=== PATIENT | male | born 1955 | race Caucasian/White ===

== ENCOUNTER 2017-04-15 14:54 | Inpatient (IN) | payer BC ==
[2017-04-15] VITALS (8 sets, daily range): BP systolic 152–169; BP diastolic 81–90; PULSE 126–136; RESP 18–24; TEMP 97.7–98.6; O2SAT 91–94
[~2017-04-15] VITALS: Ht 182.9 cm; Wt 139.4 kg
[~2017-04-15 14:54] MED LIST: ALBU1AER INH; BENI5TAB4 PO; FLON0.053; OMEP20TA PO; PRED20 PO; VENTAER INH; ZITH250T PO
[2017-04-15] MEDS ORDERED: SODIUM CHLOR 0.9% 1000 ML INJ 1,000 ML IV SCH ×2 (15:04→16:31)
--- NOTE | 2017-04-15 15:05 | PD ---
HPI Chief Complaint: cough Time Seen by Provider: 15:00 Travel History International Travel<30 days: No Contact w/Intl Traveler<30days: No Traveled to known affect area: No History of Present Illness HPI 61-year-old male history of COPD presents for evaluation. For the past 2 days he has had cough, congestion, chills or myalgias. He has had a maximum temperature of 101. Today he felt increased dyspnea and wheezing which prompted evaluation. He tried using his albuterol nebulizers at home but symptoms persisted which prompted evaluation. The cough is dry, occasionally productive with yellow sputum. He has no other complaints at this time. [facility] Past Medical History COPD: Yes Diminished Hearing: No GERD: Yes Hypertension: Yes Respiratory: Yes Past Surgical History Other Surgery: Yes (frontal sinus surg) Social History Alcohol Use: No Tobacco Use: No (quit 2012) Substance Use: No Allergies-Medications (Allergen,Severity, Reaction): Coded Allergies: penicillin G (Unverified Allergy, Unknown, 11/11/16) Reported Meds & Prescriptions Reported Meds & Active Scripts Active Reported Omeprazole 20 Mg Tab 20 Mg PO DAILY Metoprolol Tartrate 25 Mg Tab 25 Mg PO BID Combivent Respimat Inh (Ipratropium-Albuterol Inh) 20-100 Long-Term/Act Aero 1 Puff INH QID Ventolin Hfa 18 GM Inh (Albuterol Sulfate) 90 Mcg/Act Aer 2 Puff INH Q4-6H PRN Proair Hfa 8.5 GM Inh (Albuterol Sulfate) 90 Mcg/Act Aer 2 Puff INH Q4-6H PRN 108 mcg/actuation Review of Systems Except as stated in HPI: all other systems reviewed are Neg Physical Exam Narrative GENERAL: Well-developed well-nourished male who appears dyspneic. He is tachycardic in triage. SKIN: Warm and dry. HEAD: Atraumatic. Normocephalic. EYES: Pupils equal and round. No scleral icterus. No injection or drainage. ENT: No nasal bleeding or discharge. Mucous membranes pink and moist. No oral pharyngeal erythema or exudate. NECK: Trachea midline. No JVD. No lymphadenopathy CARDIOVASCULAR: Regular rate and rhythm. No murmur appreciated. RESPIRATORY: No accessory muscle use. Diffuse wheezing bilaterally. No crackles. GASTROINTESTINAL: Abdomen soft, non-tender, nondistended. Hepatic and splenic margins not palpable. MUSCULOSKELETAL: No obvious deformities. No clubbing. No cyanosis. No edema. NEUROLOGICAL: Awake and alert. No obvious cranial nerve deficits. Motor grossly within normal limits. Normal speech. PSYCHIATRIC: Appropriate mood and affect; insight and judgment normal. Data Data Last Documented VS Vital Signs Date Time Temp Pulse Resp B/P (MAP) Pulse Ox O2 Delivery O2 Flow Rate FiO2 04/15/17 16:29 98.6 131 22 169/83 (111) 94 Nasal Cannula 2.00 Orders Orders Complete Blood Count With Diff (04/15/17 15:04) Comprehensive Metabolic Panel (04/15/17 15:04) Influenzae A/B Antigen (04/15/17 15:04) Iv Access Insert/Monitor (04/15/17 15:04) Electrocardiogram (04/15/17 15:04) Ecg Monitoring (04/15/17 15:04) Oximetry (04/15/17 15:04) Oxygen Administration (04/15/17 15:04) Chest, Single Ap (04/15/17 15:04) Sodium Chloride 0.9% Flush (Ns Flush) (04/15/17 15:15) Methylprednisolone So Succ Inj (Solumedr (04/15/17 15:15) Albuterol-Ipratropium Neb (Duoneb Neb) (04/15/17 15:15) Sodium Chlor 0.9% 1000 Ml Inj (Ns 1000 M (04/15/17 15:04) Lactic Acid Sepsis Protocol (04/15/17 15:05) Blood Culture (04/15/17 15:05) Acetaminophen (Tylenol) (04/15/17 15:15) Oseltamivir (Tamiflu) (04/15/17 16:45) Sodium Chlor 0.9% 1000 Ml Inj (Ns 1000 M (04/15/17 16:31) Admit Order (Ed Use Only) (04/15/17 16:42) Labs Laboratory Tests Test 04/15/17 15:10 04/15/17 15:15 White Blood Count 5.8 TH/MM3 Red Blood Count 5.11 MIL/MM3 Hemoglobin 15.4 GM/DL Hematocrit 46.9 % Mean Corpuscular Volume 91.7 FL Mean Corpuscular Hemoglobin 30.0 PG Mean Corpuscular Hemoglobin Concent 32.8 % Red Cell Distribution Width 12.6 % Platelet Count 240 TH/MM3 Mean Platelet Volume 7.6 FL Neutrophils (%) (Auto) 75.0 % Lymphocytes (%) (Auto) 10.8 % Monocytes (%) (Auto) 8.2 % Eosinophils (%) (Auto) 3.2 % Basophils (%) (Auto) 2.8 % Neutrophils # (Auto) 4.3 TH/MM3 Lymphocytes # (Auto) 0.6 TH/MM3 Monocytes # (Auto) 0.5 TH/MM3 Eosinophils # (Auto) 0.2 TH/MM3 Basophils # (Auto) 0.2 TH/MM3 CBC Comment DIFF FINAL Differential Comment Blood Urea Nitrogen 7 MG/DL Creatinine 0.94 MG/DL Random Glucose 136 MG/DL Total Protein 7.2 GM/DL Albumin 4.0 GM/DL Calcium Level 8.7 MG/DL Alkaline Phosphatase 101 U/L Aspartate Amino Transf (AST/SGOT) 18 U/L Alanine Aminotransferase (ALT/SGPT) 36 U/L Total Bilirubin 0.3 MG/DL Sodium Level 132 MEQ/L Potassium Level 3.8 MEQ/L Chloride Level 97 MEQ/L Carbon Dioxide Level 27.0 MEQ/L Anion Gap 8 MEQ/L Estimat Glomerular Filtration Rate 82 ML/MIN Lactic Acid Level 1.9 mmol/L MDM Medical Decision Making Medical Screen Exam Complete: Yes Emergency Medical Condition: Yes Medical Record Reviewed: Yes Differential Diagnosis COPD exacerbation, pneumonia, pneumothorax, pulmonary embolism, influenza Narrative Course Patient was placed on an ECG monitor pulse oximetry. Twelve-lead EKG obtained. Plan is for lab work, chest x-ray, DuoNeb treatment, Solu-Medrol. The patient was given IV fluids. Lab work and imaging studies of intermittent. Positive for influenza A. Upon reexamination He feels somewhat improved however he is still appears dyspneic and is still tachycardic with a heart rate of 130. The patient will be admitted for observation. Procedures EKG Prior to Arrival: Yes Diagnosis Primary Impression: Acute exacerbation of chronic obstructive pulmonary disease Additional Impression: Influenza A Admitting Information Admitting Physician Requests: Anirudh Marion Apr 15, 2017 15:05
[2017-04-15] MEDS: RESP: ALBUTEROL 2.5 MG/IPRATROPIUM 0.5 MG NEB (SCH) INH ×3 (15:14→20:36)
[2017-04-15] MEDS ORDERED: methylPREDNISolone SOD SUCC 125 MG/2 ML VIAL IV PUSH ONE (15:15)
[2017-04-15] MEDS ORDERED: SODIUM CHLORIDE 0.9% FLUSH 10 ML FLUSH IVF PRN (15:15)
[2017-04-15] MEDS ORDERED: ACETAMINOPHEN 325 MG TAB PO ONE (15:15)
[2017-04-15 15:27] LABS: AUTOMATED NEUTROPHIL # 4.3 TH/MM3 (1.8-7.7); BASOPHIL # 0.2 TH/MM3 (0-0.2); BASOPHIL % 2.8 % (0.0-2.0); EOSINOPHIL # 0.2 TH/MM3 (0-0.4); EOSINOPHIL % 3.2 % (0.0-4.0); HEMATOCRIT 46.9 % (39.0-51.0); HEMOGLOBIN 15.4 GM/DL (13.0-17.0); LYMPH % 10.8 % (9.0-44.0); LYMPHOCYTE # 0.6 TH/MM3 (1.0-4.8); MEAN CELL VOLUME 91.7 FL (80.0-100.0); MEAN CORPUSCULAR HGB CONC 32.8 % (32.0-36.0); MEAN PLATELET VOLUME 7.6 FL (7.0-11.0); MONO % 8.2 % (0.0-8.0); MONOCYTE # 0.5 TH/MM3 (0-0.9); PLATELET COUNT 240 TH/MM3 (150-450); RED BLOOD COUNT 5.11 MIL/MM3 (4.50-5.90); RED CELL DISTRIBUTION WIDTH 12.6 % (11.6-17.2); WHITE BLOOD COUNT 5.8 TH/MM3 (4.0-11.0)
[2017-04-15 15:35] LABS: CHLORIDE 97 MEQ/L (98-107); SODIUM (NA) 132 MEQ/L (136-145)
[2017-04-15 15:38] LABS: CALCIUM 8.7 MG/DL (8.5-10.1); GLUCOSE,RANDOM 136 MG/DL (74-106)
[2017-04-15 15:39] LABS: BLOOD UREA NITROGEN 7 MG/DL (7-18)
[2017-04-15 15:42] LABS: ALT (GPT) 36 U/L (12-78); CREATININE 0.94 MG/DL (0.60-1.30); GLOMERULAR FILTRATION RATE 82 ML/MIN (>89)
[2017-04-15 15:43] LABS: AST (GOT) 18 U/L (15-37)
[2017-04-15 15:44] LABS: TOTAL BILIRUBIN ADULT 0.3 MG/DL (0.2-1.0); TOTAL PROTEIN 7.2 GM/DL (6.4-8.2)
[2017-04-15] MEDS ORDERED: IPRAAER INH (15:44)
[2017-04-15] MEDS ORDERED: VENTAER INH (15:44)
[2017-04-15] MEDS ORDERED: ALBUAER3 INH (15:44)
[2017-04-15] MEDS ORDERED: METO25TA3 PO (15:44)
[2017-04-15 15:45] LABS: ALKALINE PHOSPHATASE 101 U/L (45-117)
[2017-04-15] MEDS ORDERED: OMEP20TA93 PO (15:45)
--- NOTE | 2017-04-15 16:13 | RADRPT ---
EXAM DATE/TIME: 04/15/2017 15:56 [place] COMPARISON: CHEST SINGLE AP, June 17, 2015, 9:48. INDICATIONS : Shortness of breath. MEDICAL HISTORY : Chronic obstructive pulmonary disease. SURGICAL HISTORY : None. ENCOUNTER: Initial ACUITY: 1 day PAIN SCORE: 0/10 LOCATION: Bilateral chest FINDINGS: Portable AP views of the chest demonstrate a normal-sized cardiac silhouette. No effusion, consolidat ion, or pneumothorax is identified. The bones and soft tissues demonstrate no acute finding. CONCLUSION: No acute cardiopulmonary abnormality is identified. Dariel Aguillon MD on April 15, 2017 at 16:06 Board Certified Radiologist. This report was verified electronically.
[2017-04-15] MEDS ORDERED: OSELTAMIVIR PHOSPHATE 75 MG CAP PO ONE (16:45)
[2017-04-15] MEDS ORDERED: SODIUM CHLORIDE 0.9% FLUSH 10 ML FLUSH IV FLUSH PRN (17:00)
[2017-04-15] MEDS ORDERED: RESP: ALBUTEROL 2.5 MG/IPRATROPIUM 0.5 MG NEB (PRN) INH (17:00)
[2017-04-15] MEDS: SODIUM CHLOR 0.9% 1000 ML INJ 1,000 ML IV SCH (17:00)
--- NOTE | 2017-04-15 17:09 | HHI.HP ---
[facility] Primary Care Physician Cecilia Ceron MD Admission Diagnosis influenza A, COPD exacerbation Diagnoses: (1) Sepsis Diagnosis: Principal (2) Acute exacerbation of chronic obstructive pulmonary disease Diagnosis: Principal (3) Influenza A Diagnosis: Principal (4) Hyperglycemia Diagnosis: Principal (5) Hyponatremia Diagnosis: Principal Chief Complaint: Shortness of breath and dyspnea Travel History International Travel<30 Days: No Contact w/Intl Traveler <30 Da: No Traveled to Known Affected Are: No Sepsis Criteria SIRS Criteria (2 or more): Heart rate over 90, RR > 20 or PaCO2 < 32 Sepsis Criteria (SIRS+source): Infect source susp/known History of Present Illness Written by Morales Obrien, acting as scribe for Dr. Saucedo on 04/15/17 at 17: 01. 61-year-old male with known history of hypertension, chronic obstructive pulmonary disease, history tobacco use who presented to hospital because of significant shortness of breath and dyspnea. Patient states that he was in his normal state of health until approximately 2 days ago when he started having fever up to 101.0. He had runny nose with sore throat. However then improve but he got significantly short of breath and dyspnea over the last 2 days where he was using his nebulizer machine more than he usually does. He usually only uses his inhalers but because he could not catch a deep breath he was using his nebulizer twice daily. Patient could not get any improvement after using the medication so he came to emergency department for evaluation. Patient had workup done emergency department found to have hypoxia requiring 2 L O2 supplementation to maintain O2 saturations. If was a testing was positive. And is recommended by the ER physician that the patient be admitted for further evaluation and management. Review of Systems Respiratory: COMPLAINS OF: Cough, Sputum production, Shortness of breath Cardiovascular: COMPLAINS OF: Dyspnea on Exertion Past Family Social History Past Medical History Hypertension Chronic obstructive pulmonary disease Gastroesophageal reflux Past Surgical History Multiple orthopedic surgeries from multiple bone fractures Frontal sinus surgery Reported Medications Reported Meds & Active Scripts Active Reported Omeprazole 20 Mg Tab 20 Mg PO DAILY Metoprolol Tartrate 25 Mg Tab 25 Mg PO BID Combivent Respimat Inh (Ipratropium-Albuterol Inh) 20-100 Custodial/Act Aero 1 Puff INH QID Ventolin Hfa 18 GM Inh (Albuterol Sulfate) 90 Mcg/Act Aer 2 Puff INH Q4-6H PRN Proair Hfa 8.5 GM Inh (Albuterol Sulfate) 90 Mcg/Act Aer 2 Puff INH Q4-6H PRN 108 mcg/actuation Allergies: Coded Allergies: penicillin G (Unverified Allergy, Unknown, 11/11/16) Family History Reviewed is significant for father having bladder and prostate cancer. Mother with stroke Social History Patient quit smoking 2 years ago, prior to that he smoked one pack of service a day since he was in the [employer]. Denies any alcohol or illicit drugs Physical Exam Vital Signs Vital Signs Date Time Temp Pulse Resp B/P (MAP) Pulse Ox O2 Delivery O2 Flow Rate FiO2 04/15/17 16:29 98.6 131 22 169/83 (111) 94 Nasal Cannula 2.00 04/15/17 16:06 130 18 154/81 (105) 94 Nasal Cannula 3.00 04/15/17 15:15 94 Nasal Cannula 2.00 04/15/17 15:00 93 Nasal Cannula 2.00 04/15/17 15:00 93 Nasal Cannula 2.00 04/15/17 15:00 98.4 136 24 153/87 (109) 93 04/15/17 15:00 18 93 Nasal Cannula 2.00 Physical Exam GENERAL: Well-developed, mildly obese with BMI 41, in no acute distress. alert and orientated HEENT: Head is normocephalic without any lesions or masses noted. Facial features are symmetric. Eyes: Pupils equal round reactive to light. Extraocular muscles are intact. Conjunctivae were clear. Oropharyngeal: Pharynx without any erythema edema. Tongue is midline without deviation. Buccal mucosa is moist without any masses or lesions NECK: Supple without any masses. Trachea midline no deviation. No JVD, no bruits are appreciated CARDIAC: Regular rhythm, regular rate. S1/S2 are heard. No murmurs gallops or rubs. LUNGS: Lung sounds are diminished with diminished airflow. Does have coarse expiratory wheeze, no rhonchi or rales. No use of accessory muscles on inspiration or expiration. ABDOMEN: Soft, nontender. Nondistended. Bowel sounds heard in all 4 quadrants. No organomegaly or masses. Negative rebound, negative guarding EXTREMITIES: No edema, pulses are equal bilaterally. No cyanosis or clubbing NEUROLOGY: Mood and affect appear appropriate. Cranial nerves II through XII grossly intact. Muscle strength 5/5 in upper and lower extremities bilaterally. Deep tendon reflexes are 2+ in upper and lower extremities bilaterally. Laboratory Laboratory Tests Test 04/15/17 15:10 04/15/17 15:15 White Blood Count 5.8 Red Blood Count 5.11 Hemoglobin 15.4 Hematocrit 46.9 Mean Corpuscular Volume 91.7 Mean Corpuscular Hemoglobin 30.0 Mean Corpuscular Hemoglobin Concent 32.8 Red Cell Distribution Width 12.6 Platelet Count 240 Mean Platelet Volume 7.6 Neutrophils (%) (Auto) 75.0 Lymphocytes (%) (Auto) 10.8 Monocytes (%) (Auto) 8.2 Eosinophils (%) (Auto) 3.2 Basophils (%) (Auto) 2.8 Neutrophils # (Auto) 4.3 Lymphocytes # (Auto) 0.6 Monocytes # (Auto) 0.5 Eosinophils # (Auto) 0.2 Basophils # (Auto) 0.2 CBC Comment DIFF FINAL Differential Comment Blood Urea Nitrogen 7 Creatinine 0.94 Random Glucose 136 Total Protein 7.2 Albumin 4.0 Calcium Level 8.7 Alkaline Phosphatase 101 Aspartate Amino Transf (AST/SGOT) 18 Alanine Aminotransferase (ALT/SGPT) 36 Total Bilirubin 0.3 Sodium Level 132 Potassium Level 3.8 Chloride Level 97 Carbon Dioxide Level 27.0 Anion Gap 8 Estimat Glomerular Filtration Rate 82 Lactic Acid Level 1.9 Date/Time Source Procedure Growth Status 04/15/17 15:15 Blood Peripheral Aerobic Blood Culture Pending Received 04/15/17 15:15 Blood Peripheral Anaerobic Blood Culture Pending Received 04/15/17 15:30 Nasal Aspirate Influenza Types A,B Antigen (IRASEMA) - Final Positive For Flu A Antigen Complete Result Diagram: 04/16/17 0500 04/16/17 0500 Imaging Last Impressions Chest X-Ray 04/15/17 1504 Signed Impressions: Service Date/Time: Saturday, April 15, 2017 15:56 - CONCLUSION: No acute cardiopulmonary abnormality is identified. Dariel Aguillon MD Septic Shock Reassessment Septic shock perfusion: reassessment completed Caprini VTE Risk Assessment Caprini VTE Risk Assessment: Mod/High Risk (score >= 2) Caprini Risk Assessment Model Point Value = 1 Point Value = 2 Point Value = 3 Point Value = 5 Age 41-60 Minor surgery BMI > 25 kg/m2 Swollen legs Varicose veins or History of unexplained or recurrent spontaneous Oral contraceptives or hormone replacement Sepsis (< 1 month) Serious lung disease, including pneumonia (< 1 month) Abnormal pulmonary function Acute myocardial infarction Congestive heart failure (< 1 month) History of inflammatory bowel disease Medical patient at bed rest Age 61-74 Arthroscopic surgery Major open surgery (> 45 min) Laparoscopic surgery (> 45 min) Malignancy Confined to bed (> 72 hours) Immobilizing plaster cast Central venous access Age >= 75 History of VTE Family history of VTE Factor V Leiden Prothrombin [id number] Lupus anticoagulant Anticardiolipin antibodies Elevated serum homocysteine Heparin-induced thrombocytopenia Other congenital or acquired thrombophilia Stroke (< 1 month) Elective arthroplasty Hip, pelvis, or leg fracture Acute spinal cord injury (< 1 month) Prophylaxis Regimen Total Risk Factor Score Risk Level Prophylaxis Regimen 0-1 Low Early ambulation 2 Moderate Order ONE of the following: *Sequential Compression Device (SCD) *Heparin 5000 units SQ BID 3-4 Higher Order ONE of the following medications: *Heparin 5000 units SQ TID *Enoxaparin/Lovenox 40 mg SQ daily (WT < 150 kg, CrCl > 30 mL/min) *Enoxaparin/Lovenox 30 mg SQ daily (WT < 150 kg, CrCl > 10-29 mL/min) *Enoxaparin/Lovenox 30 mg SQ BID (WT < 150 kg, CrCl > 30 mL/min) AND/OR *Sequential Compression Device (SCD) 5 or more Highest Order ONE of the following medications: *Heparin 5000 units SQ TID (Preferred with Epidurals) *Enoxaparin/Lovenox 40 mg SQ daily (WT < 150 kg, CrCl > 30 mL/min) *Enoxaparin/Lovenox 30 mg SQ daily (WT < 150 kg, CrCl > 10-29 mL/min) *Enoxaparin/Lovenox 30 mg SQ BID (WT < 150 kg, CrCl > 30 mL/min) AND *Sequential Compression Device (SCD) Assessment and Plan Assessment and Plan Sepsis Patient meets criteria with tachypnea, tachycardia, influenza A infection Patient continued on Tamiflu Continue monitor blood cultures Chronic obstructive pulmonary disease with acute exacerbation Continue O2 supplementation maintain O2 sats greater 92% Start Duo nebs every 4 hours and every 2 hours as needed Start Solu-Medrol 60 mg IV every 6 hours Start Symbicort twice daily start incentive spirometry Hypertension Continue home medications Hyperglycemia Check hemoglobin A1c Start Accu-Cheks will sign scale insulin if needed Gastroesophageal reflux Continue proton pump inhibitor DVT prevention Subcutaneous heparin Sequential compression devices Code Status No code Physician Certification 2 Midnight Certification Type: Admission for Inpatient Services Order for Inpatient Services The services are ordered in accordance with Medicare regulations or non- Medicare payer requirements, as applicable. In the case of services not specified as inpatient-only, they are appropriately provided as inpatient services in accordance with the 2-midnight benchmark. Estimated LOS (days): 2 days is the estimated time the patient will need to remain in the hospital, assuming treatment plan goals are met and no additional complications. Post-Hospital Plan: Not yet determined Medical Decision Making Impression and Plan This note was transcribed by karina [[email or web address]]. I, Dr. Lauren Saucedo personally performed the history, physical exam, and medical decision making; and confirmed the accuracy of the information in the transcribed note. Patient is seen and history and physical are obtained at the time of the note. It is only signed at this time Authenticated by Dr. Lauren Saucedo on 04/16/17 at 14:35. Morales Obrien Apr 15, 2017 17:08 Lauren Saucedo MD Apr 16, 2017 14:36
[2017-04-15] MEDS: HEPARIN SODIUM - SQ 10,000 UNITS/ML VIAL SQ SCH (17:33)
[2017-04-15] MEDS: METOPROLOL TARTRATE 25 MG TAB PO SCH (21:39)
[2017-04-15] MEDS: BUDESONIDE-FORMOTEROL 160/4.5 MCG INHALER INH SCH (21:40)
[2017-04-15] MEDS: SODIUM CHLORIDE 0.9% FLUSH 10 ML FLUSH IV FLUSH SCH (21:41)
[2017-04-15] MEDS: OSELTAMIVIR PHOSPHATE 75 MG CAP PO SCH (21:41)
[2017-04-15] MEDS: methylPREDNISolone SOD SUCC 125 MG/2 ML VIAL IV PUSH SCH (21:43)
[2017-04-15 22:36] LABS: HEMOGLOBIN A1C 5.8 % (4.3-6.0)
[2017-04-16] VITALS: BP 150/93; PULSE 106; RESP 18; TEMP 97.9; O2SAT 95
[2017-04-16 04:00] VITALS: BP 152/81; PULSE 102; RESP 17; TEMP 98.1; O2SAT 97
[2017-04-16] MEDS: methylPREDNISolone SOD SUCC 125 MG/2 ML VIAL IV PUSH SCH ×2 (04:28→10:00)
[2017-04-16] MEDS: HEPARIN SODIUM - SQ 10,000 UNITS/ML VIAL SQ SCH (04:29)
[2017-04-16 06:19] LABS: AUTOMATED NEUTROPHIL # 3.2 TH/MM3 (1.8-7.7); BASOPHIL % 0.1 % (0.0-2.0); EOSINOPHIL % 0.2 % (0.0-4.0); HEMATOCRIT 47.3 % (39.0-51.0); HEMOGLOBIN 15.5 GM/DL (13.0-17.0); LYMPH % 9.2 % (9.0-44.0); LYMPHOCYTE # 0.3 TH/MM3 (1.0-4.8); MEAN CELL VOLUME 93.2 FL (80.0-100.0); MEAN CORPUSCULAR HEMOGLOBIN 30.6 PG (27.0-34.0); MEAN CORPUSCULAR HGB CONC 32.8 % (32.0-36.0); MONO % 2.7 % (0.0-8.0); MONOCYTE # 0.1 TH/MM3 (0-0.9); NEUT % 87.8 % (16.0-70.0); PLATELET COUNT 235 TH/MM3 (150-450); RED BLOOD COUNT 5.07 MIL/MM3 (4.50-5.90); RED CELL DISTRIBUTION WIDTH 12.9 % (11.6-17.2); WHITE BLOOD COUNT 3.6 TH/MM3 (4.0-11.0)
[2017-04-16 06:34] LABS: BICARBONATE 27.5 MEQ/L (21.0-32.0)
[2017-04-16 06:37] LABS: CREATININE 0.78 MG/DL (0.60-1.30)
[2017-04-16] MEDS: SODIUM CHLOR 0.9% 1000 ML INJ 1,000 ML IV SCH (07:09)
[2017-04-16] MEDS: RESP: ALBUTEROL 2.5 MG/IPRATROPIUM 0.5 MG NEB (SCH) INH ×2 (07:28→11:03)
[2017-04-16 07:32] VITALS: O2SAT 92
[2017-04-16 07:50] VITALS: BP 147/81; PULSE 126; RESP 20; TEMP 98.3; O2SAT 91
[2017-04-16] MEDS ORDERED: PANTOPRAZOLE SOD 20 MG DELAYED RELEASE TAB PO SCH (09:00)
[2017-04-16] MEDS: BUDESONIDE-FORMOTEROL 160/4.5 MCG INHALER INH SCH (09:56)
[2017-04-16] MEDS: OSELTAMIVIR PHOSPHATE 75 MG CAP PO SCH (10:00)
[2017-04-16] MEDS ORDERED: PNEUMOCOCCAL POLYVALENT INJ 25 MCG/0.5 ML SYR IM ONE (10:00)
[2017-04-16] MEDS: SODIUM CHLORIDE 0.9% FLUSH 10 ML FLUSH IV FLUSH SCH (10:01)
[2017-04-16] MEDS: METOPROLOL TARTRATE 25 MG TAB PO SCH (10:01)
[2017-04-16 11:50] VITALS: BP 136/79; PULSE 116; RESP 20; TEMP 97.6; O2SAT 91
[2017-04-16] MEDS ORDERED: MEDR4PAK PO (13:02)
[2017-04-16] MEDS ORDERED: OSEL75 PO (13:02)
[2017-04-16] MEDS ORDERED: Budeson-Formot 160-4.5 Mcg Inh INH (13:02)
--- NOTE | 2017-04-16 13:02 | HHI.DCPOC ---
Discharge Care Plan Diagnosis: (1) Influenza A (2) Acute exacerbation of chronic obstructive pulmonary disease Goals to Promote Your Health * To prevent worsening of your condition and complications * To maintain your health at the optimal level Directions to Meet Your Goals Take your medications as prescribed Follow your dietary instruction Follow activity as directed Keep your appointments as scheduled Take your immunizations and boosters as scheduled If your symptoms worsen call your PCP, if no PCP go to Urgent Care Center or Emergency Room Smoking is Dangerous to Your Health. Avoid second hand smoke Call the 24-hour hour crisis hotline for domestic abuse at Morales Obrien Apr 16, 2017 13:02
--- NOTE | 2017-04-16 13:09 | HHI.DS ---
Discharge Summary Admission Date Apr 15, 2017 at 16:58 Discharge Date: Apr 16, 2017 Admitting Diagnosis influenza A, COPD exacerbation (1) Sepsis ICD Code: A41.9 - Sepsis, unspecified organism Diagnosis: Principal (2) Acute exacerbation of chronic obstructive pulmonary disease ICD Code: J44.1 - Chronic obstructive pulmonary disease with (acute) exacerbation Diagnosis: Principal (3) Influenza A ICD Code: J10.1 - Influenza due to other identified influenza virus with other respiratory manifestations Diagnosis: Principal (4) Hyperglycemia ICD Code: R73.9 - Hyperglycemia, unspecified Diagnosis: Principal (5) Hyponatremia ICD Code: E87.1 - Hypo-osmolality and hyponatremia Diagnosis: Principal Procedures None Brief History - From Admission Written by Morales Obrien, acting as scribe for Dr. Saucedo on 04/15/17 at 17: 01. 61-year-old male with known history of hypertension, chronic obstructive pulmonary disease, history tobacco use who presented to hospital because of significant shortness of breath and dyspnea. Patient states that he was in his normal state of health until approximately 2 days ago when he started having fever up to 101.0. He had runny nose with sore throat. However then improve but he got significantly short of breath and dyspnea over the last 2 days where he was using his nebulizer machine more than he usually does. He usually only uses his inhalers but because he could not catch a deep breath he was using his nebulizer twice daily. Patient could not get any improvement after using the medication so he came to emergency department for evaluation. Patient had workup done emergency department found to have hypoxia requiring 2 L O2 supplementation to maintain O2 saturations. If was a testing was positive. And is recommended by the ER physician that the patient be admitted for further evaluation and management. CBC/BMP: 04/16/17 0500 04/16/17 0500 Significant Findings Laboratory Tests Test 04/15/17 15:10 04/15/17 15:15 04/16/17 05:00 Neutrophils (%) (Auto) 75.0 % (16.0-70.0) 87.8 % (16.0-70.0) Monocytes (%) (Auto) 8.2 % (0.0-8.0) Basophils (%) (Auto) 2.8 % (0.0-2.0) Lymphocytes # (Auto) 0.6 TH/MM3 (1.0-4.8) 0.3 TH/MM3 (1.0-4.8) Random Glucose 136 MG/DL (74-106) 149 MG/DL (74-106) Sodium Level 132 MEQ/L (136-145) Chloride Level 97 MEQ/L (98-107) Estimat Glomerular Filtration Rate 82 ML/MIN (>89) White Blood Count 3.6 TH/MM3 (4.0-11.0) Imaging Last Impressions Chest X-Ray 04/15/17 1504 Signed Impressions: Service Date/Time: Saturday, April 15, 2017 15:56 - CONCLUSION: No acute cardiopulmonary abnormality is identified. Dariel Aguillon MD Hospital Course 61 year-old male with known history of hypertension, chronic obstructive pulmonary disease who presented to hospital because of shortness of breath and dyspnea. Patient was found to have acute exacerbation of COPD as well as influenza A infection. Patient was started on Tamiflu, O2 supplementation to maintain O2 sats greater than 90%, Solu-Medrol, DuoNeb, incentive spirometry. Patient tolerated treatment quite well and is feeling much improved today. His physical exam is also significantly improved with full interrogation of his lungs without any wheeze at this time. Patient is very eager to go home. He remains afebrile. Vital signs are stable. Will plan discharge accordingly. Pt Condition on Discharge: Stable Discharge Disposition: Discharge Home Discharge Time: > 30 minutes Discharge Instructions DIET: Follow Instructions for: As Tolerated, No Restrictions Activities you can perform: Regular-No Restrictions Activities to Avoid: Driving for 24 hrs Follow up Referrals: PCP Follow-up - 1 Week New Medications: Methylprednisolone Dosepak (Medrol Dosepak) 4 Mg Dspk 4 MG PO DIRECTED, #1 DSPK 0 Refills Per Pharmacist direction Oseltamivir (Tamiflu) 75 Mg Cap 75 MG PO BID for influenza, #8 CAP [Budeson-Formot 160-4.5 Mcg Inh] () 60 PUFF AERO 2 PUFF INH Q12HR for COPD, #1 INHALER Continued Medications: Albuterol 18 GM Inh (Ventolin Hfa 18 GM Inh) 90 Mcg/Act Aer 2 PUFF INH Q4-6H PRN for SHORTNESS OF BREATH, #1 INHALER 0 Refills Albuterol 8.5 GM Inh (Proair Hfa 8.5 GM Inh) 90 Mcg/Act Aer 2 PUFF INH Q4-6H PRN for SHORTNESS OF BREATH, #1 INHALER 0 Refills 108 mcg/actuation Ipratropium-Albuterol Inh (Combivent Respimat Inh) 20-100 Residential/Act Aero 1 PUFF INH QID for Asthma Management, #1 INHALER 0 Refills Metoprolol Tartrate (Metoprolol Tartrate) 25 Mg Tab 25 MG PO BID, #60 TAB 0 Refills Omeprazole (Omeprazole) 20 Mg Tab 20 MG PO DAILY, #30 TAB 0 Refills Morales Obrien Apr 16, 2017 13:09
[2017-04-16 17:00] VITALS: BP 142/75; PULSE 54
--- NOTE | 2017-04-16 22:34 | EKG ---
Date Performed: 04/15/2017 Time Performed: 15:11:04 PTAGE: 61 years EKG: ECTOPIC ATRIAL TACHYCARDIA LOW QRS VOLTAGE IN EXTREMITY LEADS INFERIOR MYOCARDIAL INFARCTIO N ABNORMAL ECG INTERPRETATION BASED ON A DEFAULT AGE OF 40 YEARS NO PREVIOUS TRACING DOCTOR: Chris Fay Interpretating Date/Time 04/16/2017 22:31:48
== END 2017-04-16 13:38 | disposition home or self-care (01) | DRG 872 ==
LOC: PHEFT 14:54 → PHEDA 16:43 → OBSVTOIN 16:58 → PH3B 17:52
PROVIDERS: ADMIT Hospitalist; ATTEND Hospitalist
DX: A41.9 Sepsis, unspecified organism (principal); E87.1 Hypo-osmolality and hyponatremia; I10 Essential (primary) hypertension; J44.1 Chronic obstructive pulmonary disease with (acute) exacerbation; Z68.41 Body mass index [BMI] 40.0-44.9, adult; J10.1 Influenza due to other identified influenza virus with other respiratory manifestations; K21.9 Gastro-esophageal reflux disease without esophagitis; R00.0 Tachycardia, unspecified; R73.9 Hyperglycemia, unspecified; R09.02 Hypoxemia; E66.9 Obesity, unspecified; R06.82 Tachypnea, not elsewhere classified; Z23 Encounter for immunization; Z87.891 Personal history of nicotine dependence
CPT/HCPCS: 71045; 80048; 80053; 83036; 83605; 85025; 87040; 87804; 90471; 90732; 93005; 94150; 94640; 94664; 96361; 96374; G0009; J1644; J2930; J7030